=== PATIENT | female | born 1975 | race Two or more races ===

== ENCOUNTER 2022-07-15 09:32 | Emergency (ER) | payer OTHER ==
[~2022-07-15] VITALS: Ht 165.1 cm; Wt 140.6 kg
[2022-07-15] MEDS ORDERED: COZAAR50 MG PO (09:42)
[2022-07-15] MEDS ORDERED: KETO10TA2 PO (15:10)
== END 2022-07-15 15:18 | disposition home or self-care (01) ==
LOC: ER 09:32
DX: S93.492A Sprain of other ligament of left ankle, initial encounter (principal); S99.922A Unspecified injury of left foot, initial encounter; I10 Essential (primary) hypertension; Z91.012 Allergy to eggs

== ENCOUNTER 2022-09-25 10:00 | Day surgery (SDC) | payer OTHER ==
[~2022-09-25] VITALS: Ht 165.1 cm; Wt 145.1 kg
[~2022-09-25 10:00] MED LIST: COZAAR50 MG PO; D3 + K2 DOTS 11 EACH PO; KETO10TA2 PO; PREVACID30 M1 PO; PROVENTIL HFA6.7 GM IH; VOLTAREN ARTHRI20 GM
== END 2022-09-25 17:15 | disposition home or self-care (01) ==
LOC: CIR.AMB 10:00
PROVIDERS: ATTEND Obstetrics & Gynecology
DX: N87.9 Dysplasia of cervix uteri, unspecified (principal); N72 Inflammatory disease of cervix uteri; N84.0 Polyp of corpus uteri; Z20.822 Contact with and (suspected) exposure to COVID-19; I10 Essential (primary) hypertension